=== PATIENT | female | born 1995 | race Caucasian/White ===

== ENCOUNTER 2022-04-30 17:50 | Observation (INO) | payer BC ==
[~2022-04-30] VITALS: Ht 167.6 cm; Wt 77.1 kg
[2022-04-30 18:31] LABS: HEMOGLOBIN 14.6 gm/dl (12.3-15.3); RED BLOOD COUNT 4.74 M/UL (4.00-5.10); WHITE BLOOD COUNT 9.3 K/UL (4.5-11.0)
[2022-04-30 18:55] LABS: BUN/CREATININE RATIO 13 (0-10)
[2022-05-01 07:49] LABS: WHITE BLOOD COUNT 10.5 K/UL (4.5-11.0)
[2022-05-01 08:01] LABS: HEMOGLOBIN 12.4 gm/dl (12.3-15.3); RED BLOOD COUNT 4.08 M/UL (4.00-5.10)
[2022-05-01 08:09] LABS: BUN/CREATININE RATIO 16 (0-10)
[2022-05-01] MEDS ORDERED: NORETHINDRONE0.35 MG PO (10:28)
--- NOTE | 2022-05-01 13:34 | NUR ---
SURGERY NURSE HERE TO TAKE PT. FOR SURGERY AT THIS TIME
[2022-05-01] MEDS ORDERED: HYDROCODON-ACE1 EAC4 PO (15:55)
[2022-05-01] MEDS ORDERED: IBU600 MG PO (15:55)
== END 2022-05-01 19:29 | disposition home or self-care (01) ==
LOC: ER1 17:50 → CDU 21:37 → M/S 21:37
PROVIDERS: Obstetrics & Gynecology; Physician Assistant; ADMIT Obstetrics & Gynecology
PROC: 0UT54ZZ Resection of Right Fallopian Tube, Percutaneous Endoscopic Approach (ICD-10-PCS; 2022-05-01)
PROC: 0UT04ZZ Resection of Right Ovary, Percutaneous Endoscopic Approach (ICD-10-PCS; principal; 2022-05-01 14:14)
DX: N83.511 Torsion of right ovary and ovarian pedicle (principal); N83.201 Unspecified ovarian cyst, right side; K66.1 Hemoperitoneum; N70.92 Oophoritis, unspecified; N83.8 Other noninflammatory disorders of ovary, fallopian tube and broad ligament; Z79.899 Other long term (current) drug therapy
CPT/HCPCS: 36415; 76830; 80053; 81001; 82150; 83605; 83690; 84703; 85025; 87086; 96372; 96374; 96375; 96376; 99285; G0378; J1100; J1170; J1885; J1956; J2001; J2250; J2270; J2370; J2405; J2550; J2704; J2710; J3010; J3480; Q9967